=== PATIENT | male | born 2000 | race Caucasian/White ===

== ENCOUNTER 2018-11-01 08:11 | Emergency (ER) | payer SELFPAY ==
[~2018-11-01] VITALS: Ht 167.6 cm; Wt 78.2 kg
[~2018-11-01 08:11] MED LIST: ALBU18HF INHALATION; ALBU2.5V3 NEB; PRED20TA PO
[2018-11-01 08:15] VITALS: BP 140/75; PULSE 102; RESP 20; Ht 167.6 cm; Wt 78.2 kg
[2018-11-01] MEDS ORDERED: ALBUTEROL 0.5% (NEB) 2.5 MG/0.5 ML AMP NEB STA (08:35)
[2018-11-01] MEDS ORDERED: DEXAMETHASONE 10 MG/ML 1 ML INJ IM STA (08:35)
[2018-11-01] MEDS ORDERED: IPRATROPIUM (NEB) 0.5 MG/2.5 ML AMP NEB STA (08:35)
[2018-11-01] MEDS ORDERED: ALBU2.5V3 NEB (10:46)
[2018-11-01] MEDS ORDERED: ALBU8.5H8 INH (10:46)
--- NOTE | 2018-11-01 13:57 | ERD ---
ER Documentation Chief Complaint Chief Complaint Complains of a SOB Hx of Asthma needs med refill HPI 18-year-old male patient with a past medical history of asthma presents to the ED stating that earlier this morning. Patient reports that he had some shortness of breath. States that he would like a medication refill for his pro- air and albuterol solution for his machine at home. Denies any cough, rhinorrhea, nausea, vomiting, diarrhea, neck stiffness. Denies any recent traveling. Denies any fever, chills, abdominal pain, chest pain. ROS All systems reviewed and are negative except as per history of present illness. Medications Home Meds Active Scripts Albuterol Sulfate* (Albuterol Sulfate* Neb) 0.083%-3 Ml Neb, 2.5 MG NEB Q4 PRN for SHORTNESS OF BREATH, #30 EA Prov:KASSANDRA ANGULO PA-C 11/01/18 Albuterol Sulfate* (Proair HFA*) 8.5 Gm Hfa.aer.ad, 2 PUFF INH Q4, #1 INHALER Prov:KASSANDRA ANGULO PA-C 11/01/18 Albuterol Sulfate* (Albuterol Sulfate* Neb) 0.083%-3 Ml Neb, 2.5 MG NEB Q4 PRN for SHORTNESS OF BREATH, #30 EA Prov:KASSANDRA ANGULO PA-C 09/14/18 Albuterol Sulfate* (Ventolin HFA*) 18 Gm Hfa.aer.ad, 2 PUFF INHALATION Q4H, #1 INHALER Prov:KASSANDRA ANGULO PA-C 09/14/18 Prednisone* (Prednisone*) 20 Mg Tab, 40 MG PO DAILY for 4 Days, TAB Prov:KASSANDRA ANGULO PA-C 09/14/18 Allergies Allergies: Coded Allergies: No Known Allergy (Unverified , 09/14/18) PMhx/Soc History of Surgery: No Anesthesia Reaction: No Hx Neurological Disorder: No Hx Respiratory Disorders: Yes (asthma) Hx Cardiac Disorders: No Hx Psychiatric Problems: No Hx Miscellaneous Medical Probl: No Hx Alcohol Use: No Hx Substance Use: No Hx Tobacco Use: No FmHx Family History: No diabetes, No coronary disease Physical Exam Vitals Vital Signs Date Temp Pulse Resp B/P (MAP) Pulse Ox O2 O2 Flow FiO2 Time Delivery Rate 11/01/18 79 20 98 21 08:47 11/01/18 97.3 102 20 140/75 94 08:15 (96) Physical Exam Const: Abg-lrg-oixbojtmx, well-nourished. In no acute distress. Head: Atraumatic, normocephalic Eyes: Normal Conjunctiva without injection. No purulent discharge. PERRL. EOMI ENT: Normal external ear. Ear canal without erythema. Tympanic membrane pearly fonseca without effusion or bulging. Nasal canal clear with normal turbinates. Moist oropharynx without tonsillar exudates. Non-erythematous pharynx. Uvula midline. No drooling. No trismus. Neck: Full range of motion. No meningismus. No cervical lymphadenopathy. Resp: Clear to auscultation bilaterally. No wheezing, rhonchi, rales, or crackles. No accessory muscle use. No retractions. Cardio: Regular rate and rhythm. No murmurs, rubs or gallops. Abd: Soft, non tender, non distended. Normal bowel sounds. No palpable masses. No rebound tenderness. No guarding. Skin: No petechiae or rashes Back: No midline tenderness. No CVA tenderness. Ext: No cyanosis, or edema. Neur: Awake and alert. Psych: Normal Mood and Affect Results 24 hrs Current Medications Medications Dose Sig/Pastora Start Time Status Last (Trade) Ordered Route PRN Stop Time Admin Dose Reason Admin Albuterol 10 mg ONCE STAT 11/01/18 DC 11/01/18 (Proventil NEB 08:35 08:47 0.5% (Neb)) 11/01/18 08:36 Ipratropium 1 mg ONCE STAT 11/01/18 DC 11/01/18 Newman NEB 08:35 08:46 (Atrovent 11/01/18 08:36 0.02% (Neb)) 10 mg ONCE STAT 11/01/18 DC 11/01/18 Dexamethasone IM 08:35 08:47 (Decadron) 11/01/18 08:36 Procedures/MDM 18-year-old male patient with a past medical history of asthma presents to ED complaining of shortness of breath that occurred earlier this morning. Patient is afebrile and nontoxic-appearing. Patient is speaking in full sentences. Patient has a pulse oxygenation of 94% was noted to have some wheezing. Patient was given albuterol, Atrovent, Decadron here in the ED with improvement of his breathing and shortness of breath. Patient likely has an asthma exacerbation. Low suspicion for atypical [place], pneumonia, pulmonary embolism, pneumothorax, cardiac tamponade, sinusitis, peritonsillar abscess, mastoiditis, Eleazar's angina, retropharyngeal abscess, meningitis, sepsis or other emergent conditi ons. Diagnosis: Asthma Discharge medications: Albuterol Solution, Proair Follow up with primary care physician in 1-2 days. Instructed patient to return to the ED sooner for any worsening symptoms. Patient's questions were answered. Patient is hemodynamically stable. Patient understood and agreed with discharge plan. Patient discharged stable. Disclaimer: Inadvertent spelling and grammatical errors are likely due to EHR/dictation software use and do not reflect on the overall quality of patient care. Also, please note that the electronic time recorded on this note does not necessarily reflect the actual time of the patient encounter. Departure Diagnosis: Primary Impression: Asthma Asthma severity: unspecified severity Asthma persistence: unspecified Asthma complication type: unspecified Qualified Codes: J45.909 - Unspecified asthma, uncomplicated Condition: Stable Patient Instructions: Asthma, Acute (Adult) Referrals: [facility] YOU HAVE RECEIVED A MEDICAL SCREENING EXAM AND THE RESULTS INDICATE THAT YOU DO NOT HAVE A CONDITION THAT REQUIRES URGENT TREATMENT IN THE EMERGENCY DEPARTMENT. FURTHER EVALUATION AND TREATMENT OF YOUR CONDITION CAN WAIT UNTIL YOU ARE SEEN IN YOUR DOCTORS OFFICE WITHIN THE NEXT 1-2 DAYS. IT IS YOUR RESPONSIBILITY TO MAKE AN APPOINTMENT FOR FOLOW-UP CARE. IF YOU HAVE A PRIMARY DOCTOR --you should call your primary doctor and schedule an appointment IF YOU DO NOT HAVE A PRIMARY DOCTOR YOU CAN CALL OUR PHYSICIAN REFERRAL HOTLINE AT IF YOU CAN NOT AFFORD TO SEE A PHYSICIAN YOU CAN CHOSE FROM THE FOLLOWING [facility] [address] [place] [facility] [address] [facility] [address] [facility] [address] [facility] [address] [facility] [address] [facility]. [facility] YOU HAVE RECEIVED A MEDICAL SCREENING EXAM AND THE RESULTS INDICATE THAT YOU DO NOT HAVE A CONDITION THAT REQUIRES URGENT TREATMENT IN THE EMERGENCY DEPARTMENT. FURTHER EVALUATION AND TREATMENT OF YOUR CONDITION CAN WAIT UNTIL YOU ARE SEEN IN YOUR DOCTORS OFFICE WITHIN THE NEXT 1-2 DAYS. IT IS YOUR RESPONSIBILITY TO MAKE AN APPOINTMENT FOR FOLOW-UP CARE. IF YOU HAVE A PRIMARY DOCTOR --you should call your primary doctor and schedule and appointment IF YOU DO NOT HAVE A PRIMARY DOCTOR YOU CAN CALL OUR PHYSICIAN REFERRAL HOTLINE AT . IF YOU CAN NOT AFFORD TO SEE A PHYSICIAN YOU CAN CHOSE FROM THE FOLLOWING [facility] INSTITUTIONS: [facility] [address] [place] [address] [facility] [address] [place] [address] [facility] [address] [place] [address] [facility] Additional Instructions: Call your primary care doctor TOMORROW for an appointment during the next 2-3 days.See the doctor sooner or return here if your condition worsens before your appointment time. KASSANDRA ANGULO PA-C Nov 01, 2018 13:57
== END 2018-11-01 10:57 | disposition home or self-care (01) ==
LOC: FTE 08:11
DX: J45.901 Unspecified asthma with (acute) exacerbation (principal)
CPT/HCPCS: 94664; 96372; 99284; J1100